=== PATIENT | male | born 1945 | race Caucasian/White ===

== ENCOUNTER 2019-04-18 06:05 | Day surgery (SDC) | payer MEDICARE, SELFPAY ==
[2019-04-18 06:56] VITALS: BP 144/83; PULSE 636; RESP 16; TEMP 36.4; O2SAT 98; BMI 31.2
[2019-04-18] MEDS: Lactated Ringers 1,000 ML 100 ML IV (07:14)
[2019-04-18 07:46] LABS: Bedside Glucose 158 mg/dL (70-110)
[2019-04-18] MEDS: Cefazolin 1 GM/50 ML BAG IV (07:55)
[2019-04-18] MEDS: Bupivacaine Mpf 0.5% 30 ML VIAL (08:12)
--- NOTE | 2019-04-18 08:22 | OP.PCM_ITS ---
Report of Operation Date of Procedure: 04/18/19 Pre-Operative Diagnosis: Right carpal tunnel syndrome Post-Operative Diagnosis: Right carpal tunnel syndrome Surgery/Procedure Performed:: Right carpal tunnel release Description of Surgical Findings:: Complete release transverse carpal ligament baker pastry: None Type of Anesthesia:: Block,Herbster Anesthesiologist: Corbin Beth Special Medications: Ancef Estimated Blood Loss (mL): 2 Fluids Replaced: 500 L crystalloid Description of Procedure: Brief history operative indications: 73-year-old male who failed conservative management of his carpal tunnel syndrome. Patient wished to proceed with right open carpal tunnel release. After discussing risks and benefits including but not limited to blood loss, DVTs, PEs, neurovascular damage, infection, hematoma and general risk of anesthesia, the patient demonstrated understanding wish to proceed with right open carpal tunnel release Procedure: On the date of the procedure, the patient's right upper extremity was marked in the preoperative area. Patient was taken back to the operating room, where the tourniquet was placed on the right upper extremity. Patient was given light sedation. All bony prominences are identified well-padded. Anesthesia assumed control C-spine and airway and remained in control throughout the remainder the procedure. [place] block was administered by anesthesia. The right upper extremity was prepped in sterile fashion. Surgeon then scrub. Upon reentering the room, the right upper extremity was prepped in a standard orthopedic fashion. A timeout was called and everyone agreed upon the side, the site, the procedure to be performed, patient identity and antibiotics given. The incision was marked out. Incision was taken at the skin subtenons tissue fat down to fascia. Fascia was then lightly tethered until the median nerve was visible. A [place] was placed proximally and distally, and then scissors were placed proximally and distally to release the transverse carpal ligament. During the release the others were never completely closed. The [place] was then placed proximally and distally once more to verify the transverse carpal ligament had been adequately released. The wound was then copiously irrigated out with normal saline. Wound was then closed using 3-0 nylon suture. 10 cc of 50-50 mixture of 1% lidocaine and 0.5% Sensorcaine without epinephrine injection was given. Xeroform dressing was placed, sterile dressing was placed, compressive dressing was placed. Tourniquet was let down. Volar splint was placed. Patient was awakened by anesthesia and transferred to the PACU for recovery. Postoperative plan: The patient will follow up in 2 weeks for removal splint removal sutures. At that time if they are doing well they will follow-up as needed. - Complications No intraoperative complications - Admit VTE Documentation VTE Present on Admission: No VTE Mechan Device Prophylaxis: SCD's VTE Pharm Prophylaxis ordered?: No Reason prophylaxis not ordered:: Treatment Not Indicated
[2019-04-18 08:27] VITALS: BP 122/75; BP 144/83; PULSE 65; RESP 16; TEMP 36.8; O2SAT 93
[2019-04-18 08:32] VITALS: BP 116/81; BP 144/83; PULSE 66; RESP 16; O2SAT 92
[2019-04-18 08:37] VITALS: BP 133/77; BP 144/83; PULSE 65; RESP 16; O2SAT 92
[2019-04-18] MEDS: Ketorolac 15 MG/ML Vial IV (08:40)
[2019-04-18 08:42] VITALS: BP 137/75; BP 144/83; PULSE 62; RESP 16; TEMP 36.5; O2SAT 93
[2019-04-18 09:18] VITALS: BP 144/83
== END 2019-04-18 09:28 | disposition home or self-care (01) ==
LOC: SDC 06:09 → AC 06:12
PROVIDERS: Family Provider Nurse Practitioner Adult Health; PCP Nurse Practitioner Adult Health; Referring Provider Specialist; Visit Provider Specialist
PROC: (CPT 64721; principal; 2019-04-18 07:45)
DX: G56.01 Carpal tunnel syndrome, right upper limb (principal); G56.02 Carpal tunnel syndrome, left upper limb; Z79.899 Other long term (current) drug therapy; Z79.84 Long term (current) use of oral hypoglycemic drugs; E11.9 Type 2 diabetes mellitus without complications; I10 Essential (primary) hypertension; E66.3 Overweight; Z68.31 Body mass index [BMI] 31.0-31.9, adult; Z87.891 Personal history of nicotine dependence
CPT/HCPCS: 01810; 64721; 82962; J7120

== ENCOUNTER 2019-05-02 05:53 | Day surgery (SDC) | payer MEDICARE, SELFPAY ==
[2019-05-02] VITALS (7 sets, daily range): BP systolic 121–147; BP diastolic 80–93; PULSE 72–84; RESP 16; TEMP 36.6–36.8; O2SAT 92–100; BMI 31.8
[2019-05-02] MEDS: Lactated Ringers 1,000 ML 100 ML IV (06:34)
[2019-05-02 06:40] LABS: Bedside Glucose 131 mg/dL (70-110)
[2019-05-02] MEDS: Cefazolin 1 GM/50 ML BAG IV (07:06)
[2019-05-02] MEDS: Bupivacaine Mpf 0.5% 30 ML VIAL (07:25)
--- NOTE | 2019-05-02 07:29 | OP.PCM_ITS ---
Report of Operation Date of Procedure: 05/02/19 Pre-Operative Diagnosis: Left carpal tunnel syndrome Post-Operative Diagnosis: Left carpal tunnel syndrome Surgery/Procedure Performed:: Left carpal tunnel release Description of Surgical Findings:: Complete release transverse carpal ligament sheet metal assembler: None Type of Anesthesia:: Block,Karen Anesthesiologist: Hao Mckeon Special Medications: Ancef Estimated Blood Loss (mL): 2 Fluids Replaced: 300 mL crystalloid Description of Procedure: Brief history operative indications: 73-year-old male patient who failed conservative treatment for his left carpal tunnel syndrome patient wished to proceed with left open carpal tunnel release. After discussing risks and benefits including but not limited to blood loss, DVTs, PEs, neurovascular damage, infection, hematoma and general risk of anesthesia, the patient demonstrated understanding wish to proceed with left open carpal tunnel release Procedure: On the date of the procedure, the patient's left upper extremity was marked in the preoperative area. Patient was taken back to the operating room, where the tourniquet was placed on the right upper extremity. Patient was given light sedation. All bony prominences are identified well-padded. Anesthesia assumed control C-spine and airway and remained in control throughout the remainder the procedure. [place] block was administered by anesthesia. The left upper extremity was prepped in sterile fashion. Surgeon then scrub. Upon reentering the room, the left upper extremity was prepped in a standard orthopedic fashion. A timeout was called and everyone agreed upon the side, the site, the procedure to be performed, patient identity and antibiotics given. The incision was marked out. Incision was taken at the skin subtenons tissue fat down to fascia. Fascia was then lightly tethered until the median nerve was visible. A [place] was placed proximally and distally, and then scissors were placed proximally and distally to release the transverse carpal ligament. During the release the others were never completely closed. The [place] was then placed proximally and distally once more to verify the transverse carpal ligament had been adequately released. The wound was then copiously irrigated out with normal saline. Wound was then closed using 3-0 nylon suture. 10 cc of 50-50 mixture of 1% lidocaine and 0.5% Sensorcaine without epinephrine injection was given. Xeroform dressing was placed, sterile dressing was placed, compressive dressing was placed. Tourniquet was let down. Volar splint was placed. Patient was awakened by anesthesia and transferred to the PACU for recovery. Postoperative plan: The patient will follow up in 2 weeks for removal splint removal sutures. At that time if they are doing well they will follow-up as needed. - Complications No intraoperative complications - Admit VTE Documentation VTE Present on Admission: No VTE Mechan Device Prophylaxis: SCD's VTE Pharm Prophylaxis ordered?: No Reason prophylaxis not ordered:: Treatment Not Indicated
[2019-05-02] MEDS: Ketorolac 15 MG/ML Vial IV (07:42)
== END 2019-05-02 08:31 | disposition home or self-care (01) ==
LOC: SDC 05:54 → AC 05:55
PROVIDERS: Family Provider Nurse Practitioner Adult Health; PCP Nurse Practitioner Adult Health; Referring Provider Specialist; Visit Provider Specialist
PROC: (CPT 64721; principal; 2019-05-02 07:00)
DX: G56.03 Carpal tunnel syndrome, bilateral upper limbs (principal); E11.9 Type 2 diabetes mellitus without complications; I10 Essential (primary) hypertension; E66.3 Overweight; Z68.31 Body mass index [BMI] 31.0-31.9, adult; Z79.84 Long term (current) use of oral hypoglycemic drugs; Z79.899 Other long term (current) drug therapy; Z87.891 Personal history of nicotine dependence
CPT/HCPCS: 64721; 82962; J7120